=== PATIENT | female | born 1960 | race Two or more races ===

== ENCOUNTER 2017-12-31 12:53 | Outpatient (CLI) | payer OTHER | END 2017-12-31 13:12 | disposition home or self-care (01) | LOC: MAMO-SONO 12:53 | DX: Z12.31 Encounter for screening mammogram for malignant neoplasm of breast (principal); N64.89 Other specified disorders of breast ==

== ENCOUNTER 2020-01-03 14:03 | Outpatient (CLI) | payer OTHER | END 2020-01-03 14:21 | disposition home or self-care (01) | LOC: MAMO-SONO 14:03 | PROVIDERS: ATTEND Obstetrics & Gynecology | DX: Z12.31 Encounter for screening mammogram for malignant neoplasm of breast (principal); N60.11 Diffuse cystic mastopathy of right breast ==

== ENCOUNTER 2021-03-05 15:00 | Outpatient (CLI) | payer OTHER | END 2021-03-05 15:11 | disposition home or self-care (01) | LOC: MAMO-SONO 15:00 | PROVIDERS: ATTEND Obstetrics & Gynecology | DX: N63.12 Unspecified lump in the right breast, upper inner quadrant (principal); N63.21 Unspecified lump in the left breast, upper outer quadrant; Z12.31 Encounter for screening mammogram for malignant neoplasm of breast ==

== ENCOUNTER 2022-04-14 08:07 | Outpatient (CLI) | payer OTHER | END 2022-04-14 08:16 | disposition home or self-care (01) | LOC: MAMO-SONO 08:07 | PROVIDERS: ATTEND Obstetrics & Gynecology | DX: N60.11 Diffuse cystic mastopathy of right breast (principal) ==